=== PATIENT | female | born 1960 | race Caucasian/White ===

== ENCOUNTER 2020-03-29 15:48 | Emergency (ER) | payer OTHER ==
[~2020-03-29] VITALS: Ht 152.4 cm; Wt 83.9 kg
[2020-03-29 16:12] VITALS: Ht 152.4 cm; Wt 83.9 kg
[2020-03-29 18:19] LABS: microscopic required? YES; urine erythrocyte NEGATIVE (NEGATIVE)
[2020-03-29 18:21] LABS: PLATELET COUNT 396 x10^3mcL (130-400)
[2020-03-29 18:22] LABS: RED CELL DISTRIBUTION WIDTH 14.8 % (11.5-14.5)
[2020-03-29 18:46] LABS: CALCIUM 10.1 mg/dL (8.5-10.1); CARBON DIOXIDE 27.6 mmol/L (21-32); POTASSIUM SERUM 4.3 mmol/L (3.5-5.1)
[2020-03-29 18:57] LABS: BILIRUBIN TOTAL 0.8 mg/dL (0.20-1.00); TOTAL PROTEIN, SERUM 7.2 g/dL (6.4-8.2)
[2020-03-29 19:33] LABS: ALBUMIN 3.3 g/dL (3.4-5.0)
[2020-03-29 19:35] LABS: BAND NEUTROPHIL 1 % (0-10); MONOCYTE 3 % (0-7); SEGMENTED NEUTROPHILS 69 % (37-75); rbc morphology (normal/abnorm) NORMAL (NORMAL)
[2020-03-29 19:36] LABS: PLATELET MORPHOLOGY PLATELETS NORMAL
[2020-03-29 19:40] LABS: ERYTHROCYTE SED RATE 47 mm/hr (0-30)
[2020-03-29 22:12] VITALS: BP 149/69
== END 2020-03-29 23:07 | disposition home or self-care (01) ==
LOC: ED 15:48
PROVIDERS: Student in an Organized Health Care Education/Training Program
DX: L03.116 Cellulitis of left lower limb (principal); L03.115 Cellulitis of right lower limb; N18.9 Chronic kidney disease, unspecified; E03.9 Hypothyroidism, unspecified; Z88.0 Allergy status to penicillin
CPT/HCPCS: 83880; J1885; J3490; Q0092